=== PATIENT | male | born 1965 | race Two or more races ===

== ENCOUNTER 2021-04-23 12:44 | Inpatient (IN) | payer MEDICARE, OTHER ==
[2021-04-23] MEDS ORDERED: ONDANSETRON 4 MG/2 ML VIAL IVPUSH ONE (13:18)
[2021-04-23] MEDS ORDERED: FAMOTIDINE 20 MG/50 ML IVPB 20 MG/50 ML MG IVPB ONE ×2 (13:19→13:49)
[2021-04-23] MEDS ORDERED: MAG HYDROX/AL HYDROX/SIMETH -MYLANTA- ORAL SUSPENSION PO ONE (13:20)
[2021-04-23] MEDS ORDERED: MAG HYDROX/AL HYDROX/SIMETH 30 ML UNIT-DOSE CUP ONE (13:49)
[2021-04-23] MEDS ORDERED: ONDANSETRON 4 MG/2 ML VIAL ONE (13:49)
[2021-04-23 13:50] LABS: EOS % 1.6 % (0-4.5); HEMATOCRIT 38.1 % (35.4-49); HEMOGLOBIN 12.9 GM/dL (11.7-16.9); MCH 31.6 pg (25.7-33.7); MCHC 33.8 g/dl (32.0-35.9); MEAN CELL VOLUME 93.6 fl (80-96); MEAN PLT VOLUME 9.9 fl (7.5-11.1); MONO % 7.4 % (3.8-10.2); PLATELET COUNT 96 10^3/uL (134-434); RBC 4.07 M/mm3 (4.00-5.60); RDW 15.3 % (11.9-15.9); WHITE BLOOD COUNT 7.3 K/mm3 (4.0-10.0)
[2021-04-23 14:13] LABS: CALCIUM 9.1 mg/dL (8.5-10.1)
[2021-04-23 14:14] LABS: BLOOD UREA NITROGEN 39.4 mg/dL (7-18)
[2021-04-23 14:18] LABS: BILIRUBIN,TOTAL 0.4 mg/dL (0.2-1)
[2021-04-23] MEDS ORDERED: ACETAMINOPHEN 1000 MG/100 ML VIAL (NON FORMULARY) IVPB ONE (14:34)
[2021-04-23] MEDS ORDERED: ACETAMINOPHEN INJECTION 100 ML IVPB ONE (14:46)
[2021-04-23 14:54] LABS: PLATELET ESTIMATE DECREASED
[2021-04-23] MEDS ORDERED: ONDANSETRON *ODT* 4 MG TABLET SL ONE (21:16)
[2021-04-23] MEDS ORDERED: ONDANSETRON *ODT* 4 MG TABLET ONE (22:25)
[2021-04-24 02:01] LABS: MAGNESIUM 2.2 mg/dL (1.8-2.4)
[2021-04-24 02:04] LABS: PHOSPHOROUS 5.8 mg/dL (2.5-4.9)
[2021-04-24] MEDS ORDERED: PANTOPRAZOLE 40 MG TABLET PO ONE (03:05)
[2021-04-24] MEDS ORDERED: HEPARIN NA (PORCINE) 5,000 UNITS/ML 1ML VIAL SQ ONE (03:15)
[2021-04-24 04:47] VITALS: BMI 25.7
[2021-04-24] MEDS: INSULIN (NOVOLOG) ASPART 100 UNITS/ML 10ML VIAL SQ SCH ×4 (06:41→21:14)
[2021-04-24] MEDS: hydrALAZINE HCL 50 MG TABLET (FP) PO SCH ×3 (06:41→21:13)
[2021-04-24] MEDS: LEVOTHYROXINE NA 50 MCG TABLET (FP) PO SCH (06:41)
[2021-04-24 07:23] LABS: BASO % 0.7 % (0-2.0); EOS % 0.8 % (0-4.5); HEMATOCRIT 34.1 % (35.4-49); HEMOGLOBIN 11.8 GM/dL (11.7-16.9); LYMPH % 28.3 % (8-40); MCH 32.2 pg (25.7-33.7); MCHC 34.6 g/dl (32.0-35.9); MEAN CELL VOLUME 93.1 fl (80-96); MEAN PLT VOLUME 10.7 fl (7.5-11.1); MONO % 7.9 % (3.8-10.2); NEUT % 62.3 % (42.8-82.8); PLATELET COUNT 103 10^3/uL (134-434); RBC 3.66 M/mm3 (4.00-5.60); WHITE BLOOD COUNT 7.4 K/mm3 (4.0-10.0)
[2021-04-24 07:35] LABS: CHLORIDE 98 mmol/L (98-107); SODIUM 134 mmol/L (136-145)
[2021-04-24 07:40] LABS: ALBUMIN 3.5 g/dl (3.4-5.0); ANION GAP 11 MMOL/L (8-16); BLOOD UREA NITROGEN 53.4 mg/dL (7-18); CALCIUM 8.6 mg/dL (8.5-10.1); CO2 25 mmol/L (21-32); GLUCOSE,RANDOM 93 mg/dL (74-106); MAGNESIUM 2.3 mg/dL (1.8-2.4)
[2021-04-24 07:43] LABS: SGOT/AST 21 U/L (15-37); SGPT/ALT 41 U/L (13-61)
[2021-04-24 07:44] LABS: BILIRUBIN,TOTAL 0.4 mg/dL (0.2-1); PHOSPHOROUS 7.3 mg/dL (2.5-4.9); TOT PROT 7.1 g/dl (6.4-8.2)
[2021-04-24 08:48] LABS: ALK PHOS 98 U/L (45-117); CREATININE 7.8 mg/dL (0.55-1.3)
[2021-04-24] MEDS: CARVEDILOL 25 MG TABLET (FP) PO SCH ×2 (09:37→21:14)
[2021-04-24] MEDS: amLODIPine BESYLATE 2.5 MG TABLET (FP) PO SCH (09:38)
[2021-04-24] MEDS: ISOSORBIDE MONONITRATE 30 MG TAB.SR.24H (FP) PO SCH (09:38)
[2021-04-24] MEDS ORDERED: POLYETHYLENE GLYCOL (HEALTHYLAX) 3350 17 GM PACKET PO SCH (10:00)
[2021-04-24] MEDS: POLYETHYLENE GLYCOL (HEALTHYLAX) 3350 17 GM PACKET PO SCH ×2 (13:42→21:14)
[2021-04-24] MEDS ORDERED: SODIUM CHLORIDE 250 ML IV PRN (18:21)
[2021-04-24] MEDS ORDERED: SODIUM CHLORIDE 250 ML IV STA (20:46)
[2021-04-24] MEDS ORDERED: ATORVASTATIN CA 40 MG TABLET (FP) PO SCH (22:00)
[2021-04-25] MEDS: POLYETHYLENE GLYCOL (HEALTHYLAX) 3350 17 GM PACKET PO SCH ×2 (05:05→14:04)
[2021-04-25] MEDS: LEVOTHYROXINE NA 50 MCG TABLET (FP) PO SCH (06:28)
[2021-04-25] MEDS: hydrALAZINE HCL 50 MG TABLET (FP) PO SCH ×2 (06:28→13:56)
[2021-04-25] MEDS: INSULIN (NOVOLOG) ASPART 100 UNITS/ML 10ML VIAL SQ SCH ×2 (06:29→14:03)
[2021-04-25 07:41] LABS: BASO % 0.7 % (0-2.0); HEMATOCRIT 31.6 % (35.4-49); HEMOGLOBIN 10.8 GM/dL (11.7-16.9); LYMPH % 43.7 % (8-40); MCH 32.1 pg (25.7-33.7); MCHC 34.3 g/dl (32.0-35.9); MEAN CELL VOLUME 93.7 fl (80-96); MEAN PLT VOLUME 11.3 fl (7.5-11.1); MONO % 7.8 % (3.8-10.2); NEUT % 45.8 % (42.8-82.8); PLATELET COUNT 90 10^3/uL (134-434); RBC 3.37 M/mm3 (4.00-5.60); RDW 14.7 % (11.9-15.9); WHITE BLOOD COUNT 4.9 K/mm3 (4.0-10.0)
[2021-04-25 07:53] LABS: CHLORIDE 97 mmol/L (98-107); SODIUM 135 mmol/L (136-145)
[2021-04-25 08:06] LABS: CALCIUM 8.2 mg/dL (8.5-10.1)
[2021-04-25 08:08] LABS: ALBUMIN 3.3 g/dl (3.4-5.0); ANION GAP 12 MMOL/L (8-16); CO2 26 mmol/L (21-32); GLUCOSE,RANDOM 127 mg/dL (74-106); MAGNESIUM 2.5 mg/dL (1.8-2.4)
[2021-04-25 08:09] LABS: BLOOD UREA NITROGEN 61.7 mg/dL (7-18)
[2021-04-25 08:10] LABS: PHOSPHOROUS 7.6 mg/dL (2.5-4.9); SGOT/AST 20 U/L (15-37); SGPT/ALT 36 U/L (13-61)
[2021-04-25 08:12] LABS: ALK PHOS 116 U/L (45-117); BILIRUBIN,TOTAL 0.3 mg/dL (0.2-1); TOT PROT 6.7 g/dl (6.4-8.2)
[2021-04-25] MEDS: ISOSORBIDE MONONITRATE 30 MG TAB.SR.24H (FP) PO SCH (14:02)
[2021-04-25] MEDS: amLODIPine BESYLATE 2.5 MG TABLET (FP) PO SCH (14:03)
[2021-04-25] MEDS: CARVEDILOL 25 MG TABLET (FP) PO SCH (14:07)
[2021-04-25 14:15] VITALS: PULSE 89; TEMP 98.4
[2021-04-25 15:55] VITALS: BP 95/55
== END 2021-04-25 17:00 | disposition home or self-care (01) | DRG 254 ==
LOC: JER 12:44 → JERBED 04-24 00:10 → J4S 04-24 04:03
PROVIDERS: ADMIT Internal Medicine; ATTEND Internal Medicine
PROC: 5A1D70Z Performance of Urinary Filtration, Intermittent, Less than 6 Hours Per Day (ICD-10-PCS; principal; 2021-04-25)
DX: K59.00 Constipation, unspecified (principal); R11.0 Nausea; R10.13 Epigastric pain; I50.9 Heart failure, unspecified; E11.40 Type 2 diabetes mellitus with diabetic neuropathy, unspecified; N18.6 End stage renal disease; I95.9 Hypotension, unspecified; I12.0 Hypertensive chronic kidney disease with stage 5 chronic kidney disease or end stage renal disease; Z99.2 Dependence on renal dialysis
CPT/HCPCS: 36415; 74176-TC; 80053; 82550; 82553; 82962; 83690; 83735; 84100; 84436; 84443; 84484; 85025; 86803; 87340; 93005; 93010; 99285-25; C9803; J0131; J1644; Q0162; U0003; U0005

== ENCOUNTER 2024-08-08 05:03 | Inpatient (IN) | payer OTHER ==
[2024-08-08] MEDS ORDERED: ACETAMINOPHEN INJECTION 100 ML ONE ×2 (06:18→09:15)
[2024-08-08 06:24] LABS: BASO % 0.3 % (0-2.0); HEMOGLOBIN 14.8 GM/dL (11.7-16.9); LYMPH % 7.3 % (8-40); MCH 30.5 pg (25.7-33.7); MEAN CELL VOLUME 92.5 fl (80-96); MEAN PLT VOLUME 11.4 fl (7.5-11.1); MONO % 3.6 % (3.8-10.2); NEUT % 88.8 % (42.8-82.8); PLATELET COUNT 90 10^3/uL (134-434); RBC 4.86 M/mm3 (4.00-5.60); WHITE BLOOD COUNT 10.5 K/mm3 (4.0-10.0)
[2024-08-08 06:24] LABS: VENOUS BASE EXCESS -1.5 mmol/L (-2-2); VENOUS O2 SATURATION 34.7 % (70-80); VENOUS PCO2 45.7 mmHg (38-52); VENOUS PH 7.346 (7.310-7.410)
[2024-08-08 06:44] LABS: INR 1.14 (0.83-1.09); PROTHROMBIN TIME (PATIENT) 13.1 SEC (9.7-13.0)
[2024-08-08 06:47] LABS: ACTIVATED PTT 31.8 SECONDS (25.2-36.5)
[2024-08-08] MEDS: LIDOCAINE 4% PATCH TP ONE (06:55)
[2024-08-08] MEDS: ACETAMINOPHEN 1000 MG/100 ML BAG IVPB ONE ×2 (06:55→09:29)
[2024-08-08] MEDS: SODIUM CHLORIDE 0.9% 1000 ML INFUS.BAG IV ONE (07:13)
[2024-08-08 07:20] LABS: LACTIC ACID 10.6 mmol/L (0.4-2.0)
[2024-08-08 07:48] LABS: CHLORIDE 89 mmol/L (98-107); SODIUM 130 mmol/L (136-145)
[2024-08-08 07:52] LABS: ALBUMIN 3.6 g/dl (3.4-5.0); BLOOD UREA NITROGEN 45.2 mg/dL (7-18); CALCIUM 11.2 mg/dL (8.5-10.1); CO2 20 mmol/L (21-32)
[2024-08-08 07:53] LABS: GLUCOSE,RANDOM 238 mg/dL (74-106); MAGNESIUM 2.9 mg/dL (1.8-2.4)
[2024-08-08 07:55] LABS: SGOT/AST 47 U/L (15-37); SGPT/ALT 21 U/L (13-61)
[2024-08-08 07:57] LABS: ALK PHOS 105 U/L (45-117); BILIRUBIN,TOTAL 0.9 mg/dL (0.2-1); TOT PROT 8.9 g/dl (6.4-8.2)
[2024-08-08 07:58] LABS: ANION GAP 22 mmol/L (4-13); CREATININE 9.3 mg/dL (0.55-1.3); POTASSIUM 6.3 mmol/L (3.5-5.1)
[2024-08-08 08:00] LABS: N-TERMINAL BNP 10728.6 pg/ml (5-125)
[2024-08-08] MEDS: SODIUM CHLORIDE 0.9% 1000 ML INFUS.BAG IV STA (08:13)
[2024-08-08] MEDS: CALCIUM GLUC IN NACL, ISO-OSM 1 GM/50 ML BAG IVPB ONE (08:30)
[2024-08-08] MEDS ORDERED: CALCIUM GLUC IN NACL, ISO-OSM 1 GM/50 ML BAG IVPB ONE (08:36)
[2024-08-08] MEDS: PIPERACILLIN/TAZOB 4.5 GM 4.5 GM in DEXTROSE 5%-WATER 100 ML IVPB ONE (09:05)
[2024-08-08] MEDS ORDERED: PIPERACILLIN/TAZOB 4.5 GM 4.5 GM/100 ML BAG IVPB ONE (09:15)
[2024-08-08 09:31] LABS: CHLORIDE 98 mmol/L (98-107); POTASSIUM 4.5 mmol/L (3.5-5.1); SODIUM 134 mmol/L (136-145)
[2024-08-08 09:36] LABS: ANION GAP 10 mmol/L (4-13); BLOOD UREA NITROGEN 41.9 mg/dL (7-18); CO2 26 mmol/L (21-32); GLUCOSE,RANDOM 185 mg/dL (74-106)
[2024-08-08 09:39] LABS: SGOT/AST 33 U/L (15-37); SGPT/ALT 15 U/L (13-61)
[2024-08-08 09:40] LABS: BILIRUBIN,TOTAL 0.6 mg/dL (0.2-1)
[2024-08-08 09:45] LABS: ALBUMIN 2.5 g/dl (3.4-5.0); ALK PHOS 71 U/L (45-117); CALCIUM 8.4 mg/dL (8.5-10.1); CREATININE 7.7 mg/dL (0.55-1.3); TOT PROT 5.9 g/dl (6.4-8.2)
[2024-08-08] MEDS: VANCOMYCIN PREMIX 1.75 GM 1,750 MG/350 ML PIGGYBACK IVPB ONE (10:00)
[2024-08-08] MEDS ORDERED: VANCOMYCIN 1 GRAM (PRE-DOCKED) 1,000 MG/250 ML BAG IVPB ONE (10:47)
[2024-08-08] MEDS: VANCOMYCIN 1,000 MG in DEXTROSE 5%-WATER - 250 ML IVPB ONE (11:10)
[2024-08-08] MEDS ORDERED: AMINO ACIDS 4.25%/D5W 1,000 ML IV SCH (12:00)
[2024-08-08] MEDS: ACETAMINOPHEN 1000 MG/100 ML BAG IVPB PRN (13:55)
[2024-08-08] MEDS ORDERED: SODIUM CHLORIDE 500 ML IV STA (15:10)
[2024-08-08] MEDS ORDERED: SODIUM CHLORIDE 250 ML IV PRN (15:23)
[2024-08-08] MEDS: SODIUM CHLORIDE 500 ML IV STA (15:40)
[2024-08-08] MEDS: LACTATED RINGERS SOLUTION 1,000 ML/1,000 ML INFUS.BAG IV STA (17:15)
[2024-08-08] MEDS: INSULIN ASPART SLIDING SCALE (NOVOLOG) 1 VIAL SQ SCH (17:24)
[2024-08-08 18:01] VITALS: BMI 24.1
[2024-08-08] MEDS: AMINO ACIDS 4.25%/D5W 1,000 ML IV SCH (18:18)
[2024-08-08] MEDS: HEPARIN NA (PORCINE) 5,000 UNITS/ML 1ML VIAL SQ SCH (21:35)
[2024-08-08] MEDS: PIPERACILLIN/TAZOB 4.5 GM 4.5 GM/100 ML BAG IVPB SCH (21:35)
[2024-08-08] MEDS ORDERED: PIPERACILLIN/TAZOB 4.5 GM 4.5 GM in DEXTROSE 5%-WATER 100 ML IVPB SCH (22:00)
[2024-08-09 08:24] LABS: BASO % 0.2 % (0-2.0); EOS % 1.5 % (0-4.5); HEMATOCRIT 31.7 % (35.4-49); HEMOGLOBIN 10.6 GM/dL (11.7-16.9); LYMPH % 7.2 % (8-40); MCH 30.8 pg (25.7-33.7); MCHC 33.6 g/dl (32.0-35.9); MEAN CELL VOLUME 91.5 fl (80-96); MEAN PLT VOLUME 10.4 fl (7.5-11.1); MONO % 6.7 % (3.8-10.2); NEUT % 84.4 % (42.8-82.8); PLATELET COUNT 38 10^3/uL (134-434); RBC 3.46 M/mm3 (4.00-5.60); RDW 13.4 % (11.9-15.9); WHITE BLOOD COUNT 5.7 K/mm3 (4.0-10.0)
[2024-08-09 08:50] LABS: CHLORIDE 95 mmol/L (98-107); POTASSIUM 4.6 mmol/L (3.5-5.1); SODIUM 132 mmol/L (136-145)
[2024-08-09 08:55] LABS: ANION GAP 10 mmol/L (4-13); CALCIUM 8.8 mg/dL (8.5-10.1); CO2 27 mmol/L (21-32); GLUCOSE,RANDOM 203 mg/dL (74-106)
[2024-08-09 08:56] LABS: ALBUMIN 2.3 g/dl (3.4-5.0)
[2024-08-09 08:58] LABS: SGPT/ALT 38 U/L (13-61)
[2024-08-09 08:59] LABS: SGOT/AST 105 U/L (15-37)
[2024-08-09 09:00] LABS: BILIRUBIN,TOTAL 0.5 mg/dL (0.2-1); TOT PROT 5.9 g/dl (6.4-8.2)
[2024-08-09 09:02] LABS: ALK PHOS 69 U/L (45-117)
[2024-08-09 09:03] LABS: BLOOD UREA NITROGEN 68.8 mg/dL (7-18); CREATININE 9.3 mg/dL (0.55-1.3)
[2024-08-09 09:31] LABS: PLATELET ESTIMATE DECREASED
[2024-08-09] MEDS: NITROGLYCERIN SUBLINGUAL 1/150 0.4 MG TAB SL ONE (10:20)
[2024-08-09] MEDS ORDERED: HEPARIN NA (PORCINE) 5,000 UNITS/ML 1ML VIAL IVPUSH PRN ×3 (10:42→13:29)
[2024-08-09] MEDS: ASPIRIN 81 MG CHEWABLE TABLETS PO ONE (10:57)
[2024-08-09] MEDS: ASPIRIN 300 MG SUPP.RECT RC ONE (11:00)
[2024-08-09 11:55] LABS: HEPATITIS B SURFACE AG MATERN NON-REACTIVE (NONREACTIVE)
[2024-08-09] MEDS: HEPARIN INFUSION - 25,000 UNITS/500 ML INFUS.BAG IVPB SCH ×2 (12:19→14:57)
[2024-08-09] MEDS: HEPARIN NA (PORCINE) 5,000 UNITS/ML 1ML VIAL IVPUSH ONE (13:05)
[2024-08-09] MEDS ORDERED: SODIUM CHLORIDE 250 ML IV PRN (13:29)
[2024-08-09] MEDS ORDERED: ACETAMINOPHEN 1000 MG/100 ML BAG IVPB PRN (13:29)
[2024-08-09] MEDS: MUPIROCIN 2% TOPICAL OINTMENT FOR DECOLONIZATION NS SCH ×2 (13:40→21:28)
[2024-08-09] MEDS: CLOPIDOGREL BISULFATE 300 MG TABLET PO ONE ×2 (13:41→15:04)
[2024-08-09] MEDS ORDERED: VANCOMYCIN/WATER FOR INJ (PEG) 1,000 MG/200 ML BAG IVPB SCH (16:00)
[2024-08-09] MEDS: INSULIN ASPART SLIDING SCALE (NOVOLOG) 1 VIAL SQ SCH (17:24)
[2024-08-09] MEDS ORDERED: CEFAZOLIN 1 GM in DEXTROSE 5%-WATER - 50 ML IVPB SCH (18:00)
[2024-08-09] MEDS: PIPERACILLIN/TAZOB 2.25 GM 2.25 GM/50 ML BAG IVPB SCH (18:29)
[2024-08-09] MEDS: CHLORHEXIDINE GLUCONATE 4% CLEANSER FOR DECOLONIZATION TP SCH (21:25)
[2024-08-09] MEDS: HEPARIN NA (PORCINE) 5,000 UNITS/ML 1ML VIAL IVPUSH PRN (21:31)
[2024-08-09] MEDS ORDERED: CHLORHEXIDINE GLUCONATE 4% CLEANSER FOR DECOLONIZATION TP SCH (22:00)
[2024-08-09] MEDS ORDERED: PIPERACILLIN/TAZOB 4.5 GM 4.5 GM/100 ML BAG IVPB SCH (22:00)
[2024-08-10] MEDS: ACETAMINOPHEN 325 MG TABLET (FP) PO PRN (01:36)
[2024-08-10 02:16] VITALS: RESP 22; TEMP 98.2
[2024-08-10] MEDS: HYDROmorphone HCl 2 MG/ML VIAL IVPUSH ONE (02:22)
[2024-08-10] MEDS ORDERED: hydrALAZINE HCL 20 MG/ML VIAL IM ONE (04:18)
[2024-08-10] MEDS ORDERED: ACETAMINOPHEN 500 MG TABLET (FP) PO PRN (04:24)
[2024-08-10] MEDS: hydrALAZINE HCL 20 MG/ML VIAL IVPUSH ONE ×2 (04:28→04:54)
[2024-08-10 04:34] VITALS: BP 184/84; PULSE 110
[2024-08-10] MEDS ORDERED: EPINEPHrine 1:10,000 (P-F SYR) 1 MG/10 ML DISP.SYRIN ONE ×2 (05:04→05:39)
[2024-08-10] MEDS ORDERED: RAPID SEQUENCE INTUBATION KIT NR ONE (05:08)
[2024-08-10] MEDS ORDERED: NOREPINEPHRINE BITARTRATE 4 MG/4 ML ML IV ONE (05:13)
[2024-08-10] MEDS ORDERED: CALCIUM CHLORIDE 1 GM/10 ML *DISP.SYRIN ONE ×2 (05:25→05:37)
[2024-08-10] MEDS ORDERED: SODIUM BICARBONATE 8.4% 50 MEQ/50 ML DISP.SYRIN ONE ×2 (05:25→05:37)
[2024-08-10 05:53] LABS: ARTERIAL BLD GAS O2 SATURATION 99.8 % (95-98); ARTERIAL BLOOD GAS BASE EXCESS 51.6 mmol/L (-2-2); ARTERIAL BLOOD GAS PO2 310.9 mmHg (80-100)
[2024-08-10 05:57] LABS: ARTERIAL BLOOD GAS pH 7.641 (7.350-7.450)
[2024-08-10] MEDS ORDERED: ASPIRIN 81 MG CHEWABLE TABLETS PO SCH (10:00)
[2024-08-10] MEDS ORDERED: CLOPIDOGREL BISULFATE 75 MG TABLET (FP) PO SCH ×2 (10:00)
== END 2024-08-10 07:35 | disposition expired | DRG 871 ==
LOC: JER 05:03 → JERBED 10:18 → J2W 12:57 → JICU 08-09 12:01
PROVIDERS: ADMIT Internal Medicine; ATTEND Internal Medicine
PROC: 5A1D70Z Performance of Urinary Filtration, Intermittent, Less than 6 Hours Per Day (ICD-10-PCS; 2024-08-09)
PROC: 5A12012 Performance of Cardiac Output, Single, Manual (ICD-10-PCS; principal; 2024-08-10)
PROC: 0BH17EZ Insertion of Endotracheal Airway into Trachea, Via Natural or Artificial Opening (ICD-10-PCS; 2024-08-10)
DX: A41.9 Sepsis, unspecified organism (principal); I21.4 Non-ST elevation (NSTEMI) myocardial infarction; I63.9 Cerebral infarction, unspecified; N18.6 End stage renal disease; R65.21 Severe sepsis with septic shock; E11.52 Type 2 diabetes mellitus with diabetic peripheral angiopathy with gangrene; I13.2 Hypertensive heart and chronic kidney disease with heart failure and with stage 5 chronic kidney disease, or end stage renal disease; I50.22 Chronic systolic (congestive) heart failure; G81.94 Hemiplegia, unspecified affecting left nondominant side; I42.8 Other cardiomyopathies; Z79.4 Long term (current) use of insulin; I25.10 Atherosclerotic heart disease of native coronary artery without angina pectoris; E11.22 Type 2 diabetes mellitus with diabetic chronic kidney disease; Z99.2 Dependence on renal dialysis; H54.8 Legal blindness, as defined in USA; I44.7 Left bundle-branch block, unspecified; R47.1 Dysarthria and anarthria; E03.9 Hypothyroidism, unspecified; I65.22 Occlusion and stenosis of left carotid artery; E11.42 Type 2 diabetes mellitus with diabetic polyneuropathy
CPT/HCPCS: 0241U-QW; 36415; 36600; 70450-TC; 70496-TC; 70498-TC; 70551-TC; 71045-TC-FY; 71250-TC; 72125-TC; 72131-TC; 72170-TC-FY; 73521-TC-FY; 80053; 82550; 82553; 82803; 82962; 83605; 83735; 83880; 84100; 84484; 85025; 85610; 85730; 86704; 86705; 86803; 86900; 87040; 87186; 87340; 87481; 87517; 93005; 93010; 93306-TC; 93880-TC; 99285-25; G0480; J0131; J1644; J3370; Q9967